=== PATIENT | female | born 1945 | race African-American/Black ===

== ENCOUNTER → 2017-01-29 | Outpatient (CLI) | payer OTHER, MEDICAID ==
[2015-11-19 13:35] VITALS: BP 135/65
--- NOTE | 2017-01-29 13:29 | KCIC ---
PROCEDURE Bilateral digital diagnostic mammogram. HISTORY Followup abnormal mammogram from October 2015. Recommend workup was not performed at that time. TECHNIQUE Bilateral digital mammogram. CAD was utilized. Routine CC and MLO views of both breasts were obtained as well as spot compression view of the right breast in CC projection. COMPARISON Bilateral mammogram November 04, 2015. FINDINGS Breast parenchyma demonstrates scattered fibroglandular densities (tissue density B). No dominant suspicious mass, suspicious microcalcifications, or architecture distortion is identified in either breast. The multiple, small mammographic asymmetries and masses identified on the previous study are without significant change on current examination. No enlarging mass or significant change is identified. Several benign appearing calcifications are present within both breasts. IMPRESSION No significant interval change in appearance of the breasts. No dominant suspicious abnormality is identified. Recommend return to annual screening mammography. BIRADS: 2 - Benign Finding(s) Follow Up: In 12 month(s) The images were reviewed with computer-aided detection. Patient information was entered into a reminder system with a target due date for the next mammogram. Statement of the [employer]: Mammography is the most sensitive method for findings small breast cancers, but it does not detect them all and is not a substitute for careful clinical examination. A negative mammogram does not negate a clinically suspicious finding and should not result in a delay in biopsying a clinically suspicious abnormality. Electronically signed by: Desmond Abraham MD (Jan 29, 2017 13:28:40)
== END | disposition home or self-care (01) ==
LOC: KCIC MAMMO 12:04
PROVIDERS: ATTEND Internal Medicine
DX: N63 Unspecified lump in breast (principal)
CPT/HCPCS: G0204; 77066

== ENCOUNTER → 2017-07-01 | Outpatient (CLI) | payer OTHER, MEDICAID ==
[2015-11-19 13:35] VITALS: BP 135/65
[~2017-07-01] MED LIST: IOHEXOL 240 MG/ML 50ML VIAL. PO ONE; IOHEXOL 300 MG/ML 75 ML VIAL IV ONE
--- NOTE | 2017-07-01 11:21 | RAD ---
Examination: CT of the abdomen pelvis with oral and IV contrast History: History of endometrial adenocarcinoma Comparison: None available Technique: Axial CT images of the abdomen pelvis were performed with oral and IV contrast with coronal and sagittal reformats are performed PQRS Compliance Statement: One or more of the following individualized dose reduction techniques were utilized for this examination: 1. Automated exposure control 2. Adjustment of the mA and/or kV according to patient size 3. Use of iterative reconstruction technique Findings: Minimal bibasal lung atelectasis. No evidence of free air identified in the abdomen. The visualized liver, spleen, adrenals grossly appears unremarkable. The gallbladder is mildly distended. The stomach is mildly distended. The visualized pancreas grossly appears unremarkable. The small bowel is nondilated. Feces and gas noted in the colon. The bilateral kidneys enhance symmetrically. Mild prominent appearing left renal external pelvis. No radiologically significant retroperitoneal lymphadenopathy identified. There is enlarged appearing uterus with heterogeneous enhancement with predominantly hypodense diffuse thickening of the endometrium.. Urinary bladder is mildly distended. No evidence of lytic bony destructive lesion. Moderate degenerative changes thoracal lumbar spine Minimal anterolisthesis of L4 on L5. Impression 1. Diffuse heterogeneous enhancement of the uterus with diffuse hypodensity of the thickened endometrium suggestive of known endometrial malignancy. True extent of uterus involvement can be better evaluated on MRI. 2. No evidence of enlarged retroperitoneal lymph nodes.
== END | disposition home or self-care (01) ==
LOC: MRI 07:10
DX: C54.1 Malignant neoplasm of endometrium (principal); R93.8 Abnormal findings on diagnostic imaging of other specified body structures
CPT/HCPCS: 74177; Q9966; Q9967

== ENCOUNTER → 2018-01-22 | Outpatient (CLI) | payer OTHER, MEDICAID | END | disposition home or self-care (01) | LOC: KCIC CT 10:21 | DX: C54.1 Malignant neoplasm of endometrium (principal); M47.894 Other spondylosis, thoracic region; R91.8 Other nonspecific abnormal finding of lung field; Z90.710 Acquired absence of both cervix and uterus | CPT/HCPCS: 71250; 74176 ==

== ENCOUNTER → 2018-07-30 | Outpatient (CLI) | payer OTHER, MEDICAID ==
[2015-11-19 13:35] VITALS: BP 135/65
[~2018-07-30] MED LIST changes: +HYDR-971 PO; -IOHEXOL 300 MG/ML 75 ML VIAL IV ONE
[2018-07-30 08:20] LABS: CREATININE 1.7 mg/dL (0.6-1.0); GFR 35.7
--- NOTE | 2018-07-30 11:06 | RAD ---
CT of the chest, abdomen, and pelvis compared to similar study dated January 22, 2018 for history of endometrial cancer. TECHNIQUE: Contiguous helical 5 mm axial images are obtained from the thoracic inlet to the pelvic floor following administration of oral contrast only. Sagittal and coronal reformations are evaluated. FINDINGS IN THE CHEST: Left lower thyroid gland is enlarged with coarse calcifications, but this is unchanged. Heart size within normal limits. Mild atherosclerotic changes are seen. There is calcified mediastinal adenopathy consistent with antecedent granulomatous disease. No suspicious mediastinal, hilar, or axillary lymph nodes are identified. There is a calcified granuloma in the left lung base. Another is seen in the left upper lobe. No suspicious lung nodules or masses are seen. FINDINGS IN THE ABDOMEN AND PELVIS: There is limited evaluation of the solid organ parenchyma due to lack of IV contrast. There is a small amount of perihepatic fluid. A small amount of free fluid is seen within the paracolic gutters and cul-de-sac as well. No morphologic abnormality of the liver identified. There is also increased edema throughout the mesentery diffusely, with the right hemiabdominal and pelvic predominance. Several new mesenteric masses are identified, including the 2 largest, including one measuring 1.9 x 2.1 cm in the right lower quadrant on axial image #41, and the second measuring 1.9 x 2.3 cm centrally in the pelvis on axial image 53. Several additional smaller nodules are seen, anteriorly on axial image #39, adjacent to the dominant mass in the right lower quadrant on axial image 40, anteriorly within the pelvis on axial image #55, centrally within the pelvis on axial images were, and within the right anterior pelvis on axial images 51. Several other smaller nodules may be obscured by associated mesenteric edema. No suspicious inguinal or retroperitoneal adenopathy is seen. The gallbladder Is contracted. The pancreas, spleen, and bilateral adrenal glands are grossly unremarkable. Kidneys are atrophic, but free of hydronephrosis or calcifications. There is inhomogeneous opacification of large and small bowel, with no areas of focal bowel dilatation or evidence of bowel obstruction.. Inflammatory changes around the ileocecal region are prominent, and there is some thickening of the mucosa of the distal ileum informally in this vicinity, which may represent primary or secondary enteritis. The urinary bladder is fluid distended and grossly unremarkable. Pelvic organs are absent. No suspicious osteoblastic or osteolytic bone lesions are evident. IMPRESSION: 1. Interval development of multiple mesenteric masses, the largest of which measures 1.9 x 2.3 cm and is seen centrally within the pelvis on axial image #53. This is associated with extensive inflammatory change throughout the mesentery with a right hemiabdominal and pelvic predominance, as well as development of a small amount of perihepatic and pelvic free fluid. Findings are suspicious for metastatic disease 2. Circumferential mucosal thickening of the distal ileum, corresponding to the areas of mesenteric inflammation. This finding is likely secondary enteritis from the aforementioned mesenteric process, though a primary enteritis from an etiology cannot be excluded. 3. Other chronic changes as described. Electronically signed by: Jae De Jesus MD (07/30/2018 11:02 AM) [facility]
== END | disposition home or self-care (01) ==
LOC: CT 07:53
PROVIDERS: ATTEND Obstetrics & Gynecology Gynecologic Oncology
DX: C54.1 Malignant neoplasm of endometrium (principal)
CPT/HCPCS: 36415; 71250; 74176; 82565; Q9966

== ENCOUNTER 2018-08-07 13:18 | Emergency (ER) | payer OTHER, MEDICAID ==
[~2018-08-07] VITALS: Ht 154.9 cm; Wt 64.0 kg
[2018-08-07] MEDS ORDERED: MORPHINE SULFATE 4 MG/ML VIAL. IV ONE (15:00)
[2018-08-07 15:08] LABS: BILIRUBIN,URINE SMALL (NEG); CLARITY,URINE CLEAR; COLOR,URINE AMBER; NITRITE,URINE NEGATIVE (NEG); PH,URINE 5.5; PROTEIN,URINE 30 mg/dL (NEG-TRACE)
[2018-08-07 15:11] LABS: BASO % 0 % (0-3); EOS % 0 % (0-3); HEMATOCRIT 30.6 % (36.0-47.0); HEMOGLOBIN 10.5 g/dL (12.0-15.5); LYMPH # 0.5 x10^3/uL (1.0-4.8); LYMPH % 6 % (24-48); MEAN CORPUSCULAR HEMOGLOBIN 30 pg (25-35); MEAN CORPUSCULAR HGB CONC 34 g/dL (31-37); MEAN CORPUSCULAR VOLUME 87 fL (79-100); MONO # 0.7 x10^3/uL (0.0-1.1); MONO % 9 % (0-9); NEUT # 6.7 x10^3uL (1.8-7.7); NEUT % 84 % (31-73); PLATELET COUNT 247 x10^3/uL (140-400); RED BLOOD COUNT 3.53 x10^6/uL (3.50-5.40); RED CELL DISTRIBUTION WIDTH 15.1 % (11.5-14.5)
[2018-08-07 15:19] LABS: BACTERIA,URINE FEW /HPF (0-FEW); RBC,URINE 0 /HPF (0-2); SQUAMOUS EPITHELIAL CELL,UR MOD /LPF
[2018-08-07 15:20] LABS: HYALINE CASTS, URINE OCCASIONAL /HPF
[2018-08-07 15:25] LABS: CALCIUM 9.4 mg/dL (8.5-10.1); CREATININE 1.4 mg/dL (0.6-1.0); GFR 44.7; POTASSIUM 3.7 mmol/L (3.5-5.1)
[2018-08-07 15:30] VITALS: BP 132/62
[2018-08-07 15:31] LABS: ALBUMIN 3.3 g/dL (3.4-5.0); ALBUMIN/GLOBULIN RATIO 0.8 (1.0-1.7); TOTAL BILIRUBIN 0.4 mg/dL (0.2-1.0); TOTAL PROTEIN 7.4 g/dL (6.4-8.2)
[2018-08-07] MEDS ORDERED: HYDR-971 PO (15:47)
--- NOTE | 2018-08-07 15:47 | PHYS DOC ---
Past Medical History Past Medical History: Diabetes-Type II, High Cholesterol, Hypertension, Hypothyroid, Other Additional Past Medical Histor: Gout Past Surgical History: No Surgical History Alcohol Use: None Drug Use: None Adult General Chief Complaint Chief Complaint: ABDOMINAL PAIN HPI HPI Patient is a 73 year old f who presents to the ED for evaluation of lower abdominal pain. Present for the past 4-6 weeks, progressive. States constant throughout the day but increases with BMs. History of Endometrial cancer s/p KELSEY BSO, Chemotherapy, and Radiation. Reports that she completed this 02/2018 and was told that she was in remission. Follows with Gynecology/oncologist at [facility]. Dr. Sauceda ordered a CT Chest/ABD/Pelvis given above complaints which was completed on 07/30. Pt states that she has not been told the results of CT yet. Taking Tylenol intermittently for pain. No fever, no GI bleed symptoms, no weight loss. Decreased PO intake. pt reports decreased appetite. No nausea. Having some intermittent diarrhea. Patient has declined colonoscopies repetitively and has never had one. Review of Systems Review of Systems Constitutional: Denies fever or chills [] Eyes: Denies change in visual acuity, redness, or eye pain [] HENT: Denies nasal congestion or sore throat [] Respiratory: Denies cough or shortness of breath [] Cardiovascular: No chest pain, no orthopnea, no lower extremity edema GI: Abdominal pain present, no nausea, no vomiting, Some intermittent diarrhea present. : Denies dysuria or hematuria [] Musculoskeletal: Denies back pain or joint pain [] Integument: Denies rash or skin lesions [] Neurologic: Denies headache, focal weakness or sensory changes [] Endocrine: Denies polyuria or polydipsia [] All other systems were reviewed and found to be within normal limits, except as documented in this note. Current Medications Current Medications Current Medications Medications (Trade) Dose Ordered Sig/Gricelda Start Time Stop Time Status Last Admin Dose Admin Morphine Sulfate (Morphine Sulfate) 4 mg 1X ONCE 08/07/18 15:00 08/07/18 15:01 DC 08/07/18 15:17 4 MG Allergies Allergies Allergies Coded Allergies Type Severity Reaction Last Updated Verified Sulfa (Sulfonamide Antibiotics) Allergy Unknown 11/19/15 Yes Physical Exam Physical Exam Constitutional: Well developed, well nourished, no acute distress, non-toxic appearance. [] HENT: Normocephalic, atraumatic, Eyes: PERRLA, EOMI, conjunctiva normal, no discharge. [] Neck: Normal range of motion, no tenderness, supple, no stridor. [] Cardiovascular:Heart rate regular rhythm, no murmur [] Lungs & Thorax: Bilateral breath sounds clear to auscultation [] Abdomen: Bowel sounds normal, soft, mild tenderness to LLQ and RLQ region. Skin: Warm, dry, no erythema, no rash. [] Back: No tenderness, no CVA tenderness. [] Extremities: No tenderness, no cyanosis, no clubbing, ROM intact, no edema. [] Neurologic: Alert and oriented X 3, no focal deficits noted. [] Psychologic: Affect normal, judgement normal, mood normal. [] Current Patient Data Vital Signs Vital Signs Date Time Temp Pulse Resp B/P (MAP) Pulse Ox O2 Delivery O2 Flow Rate FiO2 08/07/18 15:17 18 100 Room Air 08/07/18 14:25 97.5 83 166/83 (110) 97.5 Lab Values Laboratory Tests Test 08/07/18 14:38 08/07/18 15:00 Urine Collection Type Unknown Urine Color Zohreh Urine Clarity Clear Urine pH 5.5 Urine Specific [place] 1.025 Urine Protein 30 mg/dL (NEG-TRACE) Urine Glucose (UA) Negative mg/dL (NEG) Urine Ketones (Stick) Trace mg/dL (NEG) Urine Blood Negative (NEG) Urine Nitrite Negative (NEG) Urine Bilirubin Small (NEG) Urine Urobilinogen Dipstick 1.0 mg/dL (0.2 mg/dL) Urine Leukocyte Esterase Moderate (NEG) Urine RBC 0 /HPF (0-2) Urine WBC 11-20 /HPF (0-4) Urine Squamous Epithelial Cells Mod /LPF Urine Bacteria Few /HPF (0-FEW) Urine Hyaline Casts Occasional /HPF Urine Mucus Mod /LPF White Blood Count 8.0 x10^3/uL (4.0-11.0) Red Blood Count 3.53 x10^6/uL (3.50-5.40) Hemoglobin 10.5 g/dL (12.0-15.5) L Hematocrit 30.6 % (36.0-47.0) L Mean Corpuscular Volume 87 fL (79-100) Mean Corpuscular Hemoglobin 30 pg (25-35) Mean Corpuscular Hemoglobin Concent 34 g/dL (31-37) Red Cell Distribution Width 15.1 % (11.5-14.5) H Platelet Count 247 x10^3/uL (140-400) Neutrophils (%) (Auto) 84 % (31-73) H Lymphocytes (%) (Auto) 6 % (24-48) L Monocytes (%) (Auto) 9 % (0-9) Eosinophils (%) (Auto) 0 % (0-3) Basophils (%) (Auto) 0 % (0-3) Neutrophils # (Auto) 6.7 x10^3uL (1.8-7.7) Lymphocytes # (Auto) 0.5 x10^3/uL (1.0-4.8) L Monocytes # (Auto) 0.7 x10^3/uL (0.0-1.1) Eosinophils # (Auto) 0.0 x10^3/uL (0.0-0.7) Basophils # (Auto) 0.0 x10^3/uL (0.0-0.2) Sodium Level 143 mmol/L (136-145) Potassium Level 3.7 mmol/L (3.5-5.1) Chloride Level 104 mmol/L (98-107) Carbon Dioxide Level 26 mmol/L (21-32) Anion Gap 13 (6-14) Blood Urea Nitrogen 25 mg/dL (7-20) H Creatinine 1.4 mg/dL (0.6-1.0) H Estimated GFR (Cockcroft-Gault) 44.7 BUN/Creatinine Ratio 18 (6-20) Glucose Level 94 mg/dL (70-99) Calcium Level 9.4 mg/dL (8.5-10.1) Total Bilirubin 0.4 mg/dL (0.2-1.0) Aspartate Amino Transferase (AST) 18 U/L (15-37) Alanine Aminotransferase (ALT) 16 U/L (14-59) Alkaline Phosphatase 113 U/L (46-116) Total Protein 7.4 g/dL (6.4-8.2) Albumin 3.3 g/dL (3.4-5.0) L Albumin/Globulin Ratio 0.8 (1.0-1.7) L Lipase 67 U/L (73-393) L Laboratory Tests 08/07/18 15:00 Laboratory Tests 08/07/18 15:00 EKG EKG [] Radiology/Procedures Radiology/Procedures CT Chest /ABD/Pelvis IMPRESSION: 1. Interval development of multiple mesenteric masses, the largest of which measures 1.9 x 2.3 cm and is seen centrally within the pelvis on axial image #53. This is associated with extensive inflammatory change throughout the mesentery with a right hemiabdominal and pelvic predominance, as well as development of a small amount of perihepatic and pelvic free fluid. Findings are suspicious for metastatic disease 2. Circumferential mucosal thickening of the distal ileum, corresponding to the areas of mesenteric inflammation. This finding is likely secondary enteritis from the aforementioned mesenteric process, though a primary enteritis from an etiology cannot be excluded. 3. Other chronic changes as described. Electronically signed by: Jae De Jesus MD (07/30/2018 11:02 AM) [facility][] Course & Med Decision Making Course & Med Decision Making Pertinent Labs and Imaging studies reviewed. (See chart for details) []Patient with no acute changes to her abdominal pain since early June. Patient had an outpatient CT done as noted above. Patient was not aware of these results. CT shows some new signs of metastatic cancer to her mesentery with some inflammation of the ileum. I called and discussed with Dr. Altamirano who was not aware of these results as they had not been faxed to her yet. I faxed the CT results to her. Dr. Sauceda will provide very close follow-up. Patient has reassuring labs in the setting of no acute life-threatening abnormalities. She does seem to have some chronic anemia. Also some mild CKD. Her urine sample was contaminated. She is not having any dysuria. I will not treat this at this time. Patient will follow very close with Dr. Sauceda. We will provide pain medication. Discussed imaging and lab results with patient at length. Discussed plan for very close follow-up. Discussed Rx. ER return precautions given. Patient verbalized understanding. All questions answered. Dragon Disclaimer Dragon Disclaimer This electronic medical record was generated, in whole or in part, using a voice recognition dictation system. Departure Departure Impression: Primary Impression: Lower abdominal pain Additional Impression: Mesenteric mass Disposition: HOME, SELF-CARE Condition: IMPROVED Referrals: ALAN IQBAL MD (PCP) Patient Instructions: Abdominal Pain (Nonspecific) Additional Instructions: Thank you for coming to [facility]. Please repeat the attached handouts. Please follow-up with your primary care physician. Return to the ER if your symptoms worsen or you have any other concerns. The oncology office will be calling you tomorrow for very close follow-up appointment. Please take pain medication as prescribed for pain. This medication will cause constipation and you may need to take something over-the- counter for constipation. Scripts Hydrocodone/Apap 5-325 (NORCO 5-325 TABLET) 1 Each Tablet 1-2 EACH PO PRN Q6HRS PRN for PAIN, #15 as needed for pain Prov: GREG KAMARA DO 08/07/18 Problem Qualifiers GREG KAMARA DO Aug 07, 2018 15:47
== END 2018-08-07 15:55 | disposition home or self-care (01) ==
LOC: ER 13:18
DX: R19.04 Left lower quadrant abdominal swelling, mass and lump (principal); R19.03 Right lower quadrant abdominal swelling, mass and lump; E11.9 Type 2 diabetes mellitus without complications; E78.00 Pure hypercholesterolemia, unspecified; I10 Essential (primary) hypertension; E03.9 Hypothyroidism, unspecified; Z88.2 Allergy status to sulfonamides
CPT/HCPCS: 36415; 80053; 81001; 83690; 85025; 87086; 96374; 99284; J2270

== ENCOUNTER 2019-02-02 10:59 | Inpatient (IN) | payer BC, MEDICAID ==
[~2019-02-02] VITALS: Ht 154.9 cm; Wt 55.1 kg
[~2019-02-02 10:59] MED LIST changes: +HYDR-3164 PO; -HYDR-971 PO; -IOHEXOL 240 MG/ML 50ML VIAL. PO ONE
--- NOTE | 2019-02-02 11:26 | EKG ---
[facility] [address] [place] [address] Test Date: 2019-02-02 Test Time: 11:17:06 Pat Name: BHAVIN GALVIN Department: Room: Gender: F [employer]: : 1945 Requested By: JUDSON JIANG Order Number: [id number] Reading MD: Kelton Rose Measurements Intervals [place] Rate: 81 P: 48 MO: 150 QRS: -11 QRSD: 74 T: 13 QT: 370 QTc: 430 Interpretive Statements SINUS RHYTHM LEFTWARD AXIS OTHERWISE NORMAL ECG RI6.01 Unconfirmed report No previous ECG available for comparison Electronically Signed On 02-06-2019 9:19:13 CDT by Kelton Rose
[2019-02-02 11:30] LABS: BILIRUBIN,URINE SMALL (NEG); CLARITY,URINE CLEAR; COLOR,URINE YELLOW; NITRITE,URINE NEGATIVE (NEG); PH,URINE 5.5; PROTEIN,URINE NEGATIVE (NEG-TRACE)
[2019-02-02] MEDS ORDERED: IV NORMAL SALINE 500ML BAG 500 ML IV ONE (11:30)
[2019-02-02] MEDS ORDERED: fentaNYL PF VIAL 100 MCG/2 ML VIAL IV ONE (11:30)
[2019-02-02 11:36] LABS: SQUAMOUS EPITHELIAL CELL,UR OCC /LPF; WBC,URINE OCC /HPF (0-4)
[2019-02-02 11:37] LABS: BACTERIA,URINE FEW /HPF (0-FEW); RBC,URINE 0 /HPF (0-2)
[2019-02-02 12:23] LABS: BASO % 1 % (0-3); EOS % 0 % (0-3); HEMATOCRIT 35.5 % (36.0-47.0); HEMOGLOBIN 11.7 g/dL (12.0-15.5); LYMPH # 0.3 x10^3/uL (1.0-4.8); LYMPH % 5 % (24-48); MEAN CORPUSCULAR HEMOGLOBIN 30 pg (25-35); MEAN CORPUSCULAR HGB CONC 33 g/dL (31-37); MEAN CORPUSCULAR VOLUME 90 fL (79-100); MONO # 0.8 x10^3/uL (0.0-1.1); MONO % 12 % (0-9); NEUT # 5.9 x10^3uL (1.8-7.7); NEUT % 83 % (31-73); PLATELET COUNT 82 x10^3/uL (140-400); RED BLOOD COUNT 3.95 x10^6/uL (3.50-5.40); RED CELL DISTRIBUTION WIDTH 20.1 % (11.5-14.5); WHITE BLOOD COUNT 7.1 x10^3/uL (4.0-11.0)
[2019-02-02 12:31] LABS: PROTHROMBIN TIME PATIENT 17.2 SEC (11.7-14.0)
[2019-02-02 12:43] LABS: CALCIUM 8.7 mg/dL (8.5-10.1); CREATININE 1.2 mg/dL (0.6-1.0); GFR 53.4; POTASSIUM 3.7 mmol/L (3.5-5.1)
[2019-02-02 12:48] LABS: ALBUMIN 3.1 g/dL (3.4-5.0); TOTAL BILIRUBIN 0.3 mg/dL (0.2-1.0); TOTAL PROTEIN 6.2 g/dL (6.4-8.2)
[2019-02-02 12:50] LABS: % BANDS 13 % (0-9); % LYMPHS 5 % (24-48); % MONOS 11 % (0-10); % SEGS 71 % (35-66); ANISOCYTOSIS SLIGHT; PLT ESTIMATE DECREASED (ADEQUATE)
[2019-02-02] MEDS ORDERED: CONTRAST GIVEN. MC PRN (13:15)
[2019-02-02] MEDS ORDERED: IOHEXOL 300 MG/ML 100ML VIAL. IV ONE (13:15)
--- NOTE | 2019-02-02 13:46 | RAD ---
PORTABLE CHEST 1V Clinical indications: EVALUATE FOR POWER PORT. COMPARISON: No previous chest x-ray available. Findings: A right IJ Port-A-Cath is in place and the tip is seen within the upper superior vena cava. Small granuloma of the left upper lobe is seen. No acute lung infiltrate or pleural effusion or pulmonary edema or lung mass or pneumothorax is seen. The heart size, pulmonary vasculature, mediastinum and both odette are unremarkable. There s loss of the acromial humeral space of the right shoulder consistent with a chronic rotator cuff tear of the right shoulder. Impression: No acute lung infiltrate. Electronically signed by: Mahamed Magaña MD (02/02/2019 1:43 PM) [id number]
--- NOTE | 2019-02-02 14:34 | RAD ---
Examination: CT of the abdomen pelvis with IV contrast HISTORY: History of right lower quadrant abdominal pain COMPARISON: 07/30/2018 TECHNIQUE: Axial CT images of the abdomen pelvis with IV contrast. Coronal and sagittal reformats are performed. Exposure: One or more of the following individualized dose reduction techniques were utilized for this examination: 1. Automated exposure control 2. Adjustment of the mA and/or kV according to patient size 3. Use of iterative reconstruction technique FINDINGS: Minimal bibasilar lung atelectasis. No evidence of free air identified in the abdomen. The visualized liver, spleen, adrenals grossly appears unremarkable. The gallbladder is mildly distended Stomach is mildly distended. The visualized pancreas grossly appears unremarkable Small bowel is nondilated. Feces and gas noted in the colon. The previously visualized mesenteric soft tissue densities appears slightly decreased in size for example the right lower quadrant mesenteric soft tissue density now measures 1.1 cm (prior 2.0 cm). There is mild fat stranding identified in the mesentery particularly in the lower abdomen. The appendix is not well-visualized. However there is some fat stranding identified in the right lower quadrant of the abdomen.. Urinary bladder is mildly distended There is focal fluid identified measuring 5.6 x 2.1 cm between the urinary bladder and the rectum. The bilateral kidneys enhance symmetrically. Mild prominent left extrarenal pelvis. Moderate degenerative changes lumbar spine. There is diffuse disc bulge identified at L1-L2 vertebral level. Mild anterolisthesis of L4 on L5. IMPRESSION: 1. 5.6 cm fluid density identified in the pelvis , between the urinary bladder and the rectum , suspicious for pelvic abscess or recurrence of endometrial carcinoma. 2. Mesenteric soft tissue densities are identified slightly less prominent compared to prior exam likely metastasis. 3. Mild diffuse fat stranding identified in the mesentery particularly in the lower abdomen could be inflammatory fat stranding. There is some inflammatory fat stranding identified in the right lower quadrant abdomen, however appendix is not clearly evident on this examination. Enteritis or peritonitis is not excluded. Electronically signed by: Moody Nicole MD (02/02/2019 2:32 PM) [id number]
[2019-02-02] MEDS ORDERED: fentaNYL PF VIAL 100 MCG/2 ML VIAL IV PRN (15:15)
[2019-02-02] MEDS ORDERED: PIP/TAZO PER PHARMACY MC PRN (15:15)
--- NOTE | 2019-02-02 15:25 | PHYS DOC ---
Past Medical History Past Medical History: Cancer, Diabetes-Type II, High Cholesterol, Hypertension, Hypothyroid, Other Additional Past Medical Histor: Gout,ENDOMETRIAL CA Past Surgical History: Hysterectomy, Other Additional Past Surgical Histo: PAC Alcohol Use: None Drug Use: None Adult General Chief Complaint Chief Complaint: ABDOMINAL PAIN HPI HPI Patient is a 73 year old F right lower quadrant abdominal pain 1 week sharp coming and going. no fever, no abdo pain vomitnig,. She is on xarelto for prior history of DVT. She is on chemotherapy for endometrial cancer which did recur she is followed at [facility]. hurts to walk and move. Review of Systems Review of Systems Constitutional: Denies fever or chills [] Eyes: Denies change in visual acuity, redness, or eye pain [] Cardiovascular: No additional information not addressed in HPI [] GI: Neurologic: Denies headache, focal weakness or sensory changes [] Endocrine: Denies polyuria or polydipsia [] All other systems were reviewed and found to be within normal limits, except as documented in this note. Current Medications Current Medications Current Medications Medications (Trade) Dose Ordered Sig/Gricelda Start Time Stop Time Status Last Admin Dose Admin Fentanyl Citrate (Fentanyl 2ml Vial) 50 mcg PRN Q1HR PRN 02/02/19 15:15 02/03/19 15:14 UNV Info (CONTRAST GIVEN -- Rx MONITORING) 1 each PRN DAILY PRN 02/02/19 13:15 02/04/19 13:14 Iohexol (Omnipaque 300 Mg/ml) 60 ml 1X ONCE 02/02/19 13:15 02/02/19 13:16 DC Piperacillin Sod/ Tazobactam Sod (Zosyn Per Pharmacy) 1 each PRN DAILY PRN 02/02/19 15:15 UNV Sodium Chloride 1,000 ml @ 75 mls/hr [id number] 02/02/19 15:11 02/03/19 15:10 UNV Allergies Allergies Allergies Coded Allergies Type Severity Reaction Last Updated Verified Sulfa (Sulfonamide Antibiotics) Allergy Unknown 11/19/15 Yes Physical Exam Physical Exam Constitutional: Well developed, well nourished, no acute distress, non-toxic appearance. [] HENT: Normocephalic, atraumatic, bilateral external ears normal, oropharynx moist, no oral exudates, nose normal. [] Eyes: PERRLA, EOMI, conjunctiva normal, no discharge. [] Neck: Normal range of motion, no tenderness, supple, no stridor. [] Cardiovascular:Heart rate regular rhythm, no murmur [] Lungs & Thorax: Bilateral breath sounds clear to auscultation [] Abdomen: Bowel sounds normal, soft, rlq no rebound or guarding tenderness, no masses, no pulsatile masses. [] Skin: Warm, dry, no erythema, no rash. [] Back: No tenderness, no CVA tenderness. [] Extremities: No tenderness, no cyanosis, no clubbing, ROM intact, no edema. [] Neurologic: Alert and oriented X 3, normal motor function, normal sensory function, no focal deficits noted. [] Psychologic: Affect normal, judgement normal, mood normal. [] Current Patient Data Vital Signs Vital Signs Date Time Temp Pulse Resp B/P (MAP) Pulse Ox O2 Delivery O2 Flow Rate FiO2 02/02/19 12:25 20 96 Room Air 02/02/19 11:05 98.0 98 152/71 (98) 98.0 Lab Values Laboratory Tests Test 02/02/19 11:15 02/02/19 12:10 Urine Collection Type Unknown Urine Color Yellow Urine Clarity Clear Urine pH 5.5 Urine Specific [place] 1.025 Urine Protein Negative mg/dL (NEG-TRACE) Urine Glucose (UA) Negative mg/dL (NEG) Urine Ketones (Stick) Trace mg/dL (NEG) Urine Blood Negative (NEG) Urine Nitrite Negative (NEG) Urine Bilirubin Small (NEG) Urine Urobilinogen Dipstick 1.0 mg/dL (0.2 mg/dL) Urine Leukocyte Esterase Negative (NEG) Urine RBC 0 /HPF (0-2) Urine WBC Occ /HPF (0-4) Urine Squamous Epithelial Cells Occ /LPF Urine Bacteria Few /HPF (0-FEW) Urine Mucus Slight /LPF White Blood Count 7.1 x10^3/uL (4.0-11.0) Red Blood Count 3.95 x10^6/uL (3.50-5.40) Hemoglobin 11.7 g/dL (12.0-15.5) L Hematocrit 35.5 % (36.0-47.0) L Mean Corpuscular Volume 90 fL (79-100) Mean Corpuscular Hemoglobin 30 pg (25-35) Mean Corpuscular Hemoglobin Concent 33 g/dL (31-37) Red Cell Distribution Width 20.1 % (11.5-14.5) H Platelet Count 82 x10^3/uL (140-400) L Neutrophils (%) (Auto) 83 % (31-73) H Lymphocytes (%) (Auto) 5 % (24-48) L Monocytes (%) (Auto) 12 % (0-9) H Eosinophils (%) (Auto) 0 % (0-3) Basophils (%) (Auto) 1 % (0-3) Neutrophils # (Auto) 5.9 x10^3uL (1.8-7.7) Lymphocytes # (Auto) 0.3 x10^3/uL (1.0-4.8) L Monocytes # (Auto) 0.8 x10^3/uL (0.0-1.1) Eosinophils # (Auto) 0.0 x10^3/uL (0.0-0.7) Basophils # (Auto) 0.0 x10^3/uL (0.0-0.2) Segmented Neutrophils % 71 % (35-66) H Band Neutrophils % 13 % (0-9) H Lymphocytes % 5 % (24-48) L Monocytes % 11 % (0-10) H Platelet Estimate Decreased (ADEQUATE) Anisocytosis Slight Prothrombin Time 17.2 SEC (11.7-14.0) H Prothrombin Time INR 1.4 (0.8-1.1) H Sodium Level 142 mmol/L (136-145) Potassium Level 3.7 mmol/L (3.5-5.1) Chloride Level 104 mmol/L (98-107) Carbon Dioxide Level 30 mmol/L (21-32) Anion Gap 8 (6-14) Blood Urea Nitrogen 22 mg/dL (7-20) H Creatinine 1.2 mg/dL (0.6-1.0) H Estimated GFR (Cockcroft-Gault) 53.4 BUN/Creatinine Ratio 18 (6-20) Glucose Level 90 mg/dL (70-99) Calcium Level 8.7 mg/dL (8.5-10.1) Total Bilirubin 0.3 mg/dL (0.2-1.0) Aspartate Amino Transferase (AST) 17 U/L (15-37) Alanine Aminotransferase (ALT) 11 U/L (14-59) L Alkaline Phosphatase 101 U/L (46-116) Total Protein 6.2 g/dL (6.4-8.2) L Albumin 3.1 g/dL (3.4-5.0) L Albumin/Globulin Ratio 1.0 (1.0-1.7) Laboratory Tests 02/02/19 12:10 Laboratory Tests 02/02/19 12:10 EKG EKG []Normal sinus rhythm rate of 81 no acute ischemic changes noted interpreted by me time of encounter Radiology/Procedures Radiology/Procedures [] Impressions: IMPRESSION: 1. 5.6 cm fluid density identified in the pelvis , between the urinary bladder and the rectum , suspicious for pelvic abscess or recurrence of endometrial carcinoma. 2. Mesenteric soft tissue densities are identified slightly less prominent compared to prior exam likely metastasis. 3. Mild diffuse fat stranding identified in the mesentery particularly in the lower abdomen could be inflammatory fat stranding. There is some inflammatory fat stranding identified in the right lower quadrant abdomen, however appendix is not clearly evident on this examination. Enteritis or peritonitis is not excluded. Electronically signed by: Moody Nicole MD (02/02/2019 2:32 PM) [facility] DICTATED and SIGNED BY: MOODY NICOLE MD DATE: 02/02/19 1432 Course & Med Decision Making Course & Med Decision Making Pertinent Labs and Imaging studies reviewed. (See chart for details) []73-year-old female with a history of endometrial cancer on chemotherapy DVT on Xarelto presenting with right lower quadrant abdominal pain for one-week noted the CT scan above the appendix is not identified, however there is stranding in the right lower quadrant and she does have some tenderness she is currently on Xarelto so she would not be getting emergency surgery at this point in time anyway nevertheless I think she warrants overnight admission for IV Zosyn and routine surgical consultation pending clinical evaluation improvement. I spoke with Dr. hernández at 3:15 PM who is in agreement with the plan. Did talk to the pa itzel and her family about the diagnosis. She did report to me a recurrence of endometrial cancer her pelvis so this is likely the pelvic fluid finding on CT but I have sent for records from [facility] to compare size those records are currently pending. Dragon Disclaimer Dragon Disclaimer This electronic medical record was generated, in whole or in part, using a voice recognition dictation system. Departure Departure Impression: Primary Impression: Abdominal pain Disposition: ADMITTED INPATIENT Admitting Physician: Annita Hernández Condition: STABLE Referrals: ANNITA HERNÁNDEZ MD (PCP) JUDSON JIANG MD Feb 02, 2019 15:25
[2019-02-02] MEDS: PIPERACILLIN/TAZOBACTAM 3.375 GM in IV NORMAL SALINE 50ML 50 ML IV SCH (16:56)
[2019-02-02] MEDS: IV NORMAL SALINE 1000ML BAG 1,000 ML IV SCH (16:56)
[2019-02-02] MEDS ORDERED: TRIA1CAP3 PO (18:21)
[2019-02-02] MEDS ORDERED: ASPI81TA50 PO (18:21)
[2019-02-02] MEDS ORDERED: SIMV20TA3 PO (18:21)
[2019-02-02] MEDS ORDERED: GLIP5TAB22 PO (18:21)
[2019-02-02] MEDS ORDERED: COLC0.6T34 PO (18:21)
[2019-02-02] MEDS ORDERED: METH-364 PO (18:21)
[2019-02-02 18:24] VITALS: BP 150/51
[2019-02-02 23:00] VITALS: BP 124/69
[2019-02-03 02:45] VITALS: BP 120/72
[2019-02-03] MEDS: IV NORMAL SALINE 1000ML BAG 1,000 ML IV SCH (05:16)
[2019-02-03] MEDS: PIPERACILLIN/TAZOBACTAM 3.375 GM in IV NORMAL SALINE 50ML 50 ML IV SCH ×3 (05:55)
[2019-02-03 07:00] VITALS: BP 139/73
--- NOTE | 2019-02-03 10:29 | PDOC ---
Provider Note Provider Note Pt seen.H&P dictated.#[id number]. ALAN IQBAL MD Feb 03, 2019 10:29
[2019-02-03] MEDS ORDERED: DEXTROSE 50% 25 GM / 50ML DISP.SYRIN. IV PRN (10:30)
[2019-02-03] MEDS ORDERED: POTASSIUM CL 20MEQ D5-0.9%NACL 1,000 ML IV SCH (10:30)
[2019-02-03 11:00] VITALS: BP 138/67
--- NOTE | 2019-02-03 11:35 | HP ---
ADMIT DATE: 02/02/2019 MEDICAL HISTORY AND PHYSICAL PATIENT LOCATION: [facility]. REASON FOR ADMISSION TO THE HOSPITAL: Pelvic pain. The patient has a history of endometrial cancer, was getting chemotherapy at [facility]. HISTORY OF PRESENT ILLNESS: The patient is a 73-year-old female who is complaining of lower pelvic pain for the last 3 days prior to admission and came to the Emergency Room. White count was normal. CT scan of the abdomen shows 5 cm of fluid in the pelvis and distending of the colon, not sure could be an abscess versus appendicitis versus carcinomatosis. The patient was admitted to the hospital for surgical consultation. PAST MEDICAL HISTORY: She has a history of diabetes, hypertension, hyperlipidemia and hyperthyroidism. She also has history of endometrial cancer. She is getting treatment, had seen TRANSPORT MANAGER at [facility], had surgery and she was getting chemotherapy. PAST SURGICAL HISTORY: She has a hysterectomy for endometrial cancer. She also had a Port-A-Cath placed for chemo. ALLERGIES: ALLERGY TO SULFA. MEDICATIONS: Aspirin 81 mg daily, colchicine p.r.n., glipizide 5 mg daily, methimazole 10 mg daily, simvastatin 20 mg daily and Dyazide 1 daily. PERSONAL HISTORY: Denies smoking, alcohol or drug abuse. FAMILY HISTORY: Positive for diabetes and hypertension. REVIEW OF SYMPTOMS: CARDIAC GONZALES: No chest pain. GASTROINTESTINAL: Complains of pelvic pain. No nausea, vomiting or diarrhea. GENERAL: No fever. Rest of the 14-system was reviewed and negative. PHYSICAL EXAMINATION: HEENT: On examination, head is atraumatic. Pupils equal. Oral cavity, no congestion. NECK: Supple. Thyroid not enlarged. JVD not elevated. CHEST: Symmetrical. Port-A-Cath, right side of the chest. CARDIOVASCULAR: S1, S2. LUNGS: Clear. ABDOMEN: Soft. The patient has tenderness in the right lower quadrant to deep palpation. No rebound. Bowel sounds present. No mass palpable. GENITOURINARY: No Del Cid. RECTAL: Deferred. EXTREMITIES: No calf tenderness, no edema. Pulses are 1+. NEUROLOGICAL EXAMINATION: Cranial nerves intact. Power 5/5, moves all extremities. VITAL SIGNS: Shows temperature 98, pulse 71, respirations 18, blood pressure 124/58 and 100% on room air. LABORATORY DATA: Shows a white count of 7, hemoglobin 12 and platelets 82,000. INR is 1.4. Electrolytes show sodium 142, creatinine 3.7, chloride 104, bicarb 30, anion gap 8, BUN 32, creatinine 1.1 and glucose 90. LFTs were normal. Urine was negative. Chest x-ray was negative. CT scan of the abdomen and pelvis showed a 5.6 cm fluid density identified in the pelvis, between the bladder and the rectum. Differential diagnoses could be: 1. A pelvic abscess versus endometrial carcinomatosis. 2. Metastatic soft tissue densities. FINAL IMPRESSION: 1. Lower pelvic pain, possibility of pelvic abscess versus endometrial carcinomatosis. 2. History of stage IV endometrial carcinoma with carcinomatosis, was getting chemotherapy at [facility]; most of her treatments were there. 3. Diabetes, hypertension, hyperlipidemia and hyperthyroidism. PLAN: Plan at this time was to admit to hospital. Surgery is consulted. White count is not elevated. Follow up on the antibiotics and we will see if she had a recent CT scan at [facility]; we can compare it. ALAN IQBAL MD DR: DAFNE/lorraine JOB#: [id number] / [id number]
--- NOTE | 2019-02-03 11:56 | PDOC2 ---
CONSULT Date of Consult Date of Consult DATE: 02/03/19 TIME: 11:51 Reason for Consult Reason for Consult: possible appendicitis Referring Physician Referring Physician: ER Identification/Chief Complaint Chief Complaint abdominal pain Source Source: Chart review, Patient History of Present Illness Reason for Visit: 1 week history of RLQ pain, no n/v. No constipation or diarrhea. Hurts to walk. She is a patient of Dr Zee. Underwent hysterectomy 1 year ago for endometrial cancer. Now with recurrence and is currently undergoing chemo. She is on xalreto for dvt. Past Medical History Cardiovascular: HTN GI: GERD Heme/Onc: Cancer (endometrial ) Endocrine: Hyperthyroidism Past Surgical History Past Surgical History: Hysterectomy Family History Family History: Family History Unknown Social History No ALCOHOL: none Drugs: None Lives: with Family Current Problem List Problem List Problems Medical Problems: (1) Abdominal pain Status: Acute Current Medications Current Medications Current Medications Fentanyl Citrate (Fentanyl 2ml Vial) 50 mcg 1X ONCE IV Last administered on 02/02/19at 12:25; Start 02/02/19 at 11:30; Stop 02/02/19 at 11:31; Status DC Sodium Chloride 500 ml @ 500 mls/hr 1X ONCE IV Last administered on 02/02/19at 12:24; Start 02/02/19 at 11:30; Stop 02/02/19 at 12:29; Status DC Iohexol (Omnipaque 300 Mg/ml) 60 ml 1X ONCE IV ; Start 02/02/19 at 13:15; Stop 02/02/19 at 13:16; Status DC Info (CONTRAST GIVEN -- Rx MONITORING) 1 each PRN DAILY PRN MC SEE COMMENTS; Start 02/02/19 at 13:15; Stop 02/04/19 at 13:14 Fentanyl Citrate (Fentanyl 2ml Vial) 50 mcg PRN Q1HR PRN IV PAIN Last administered on 02/02/19at 16:56; Start 02/02/19 at 15:15; Stop 02/03/19 at 15:14 Sodium Chloride 1,000 ml @ 75 mls/hr [id number] IV Last administered on 02/03/19at 05:16; Start 02/02/19 at 15:11; Stop 02/03/19 at 10:36; Status DC Piperacillin Sod/ Tazobactam Sod (Zosyn Per Pharmacy) 1 each PRN DAILY PRN MC SEE COMMENTS; Start 02/02/19 at 15:15 Piperacillin Sod/ Tazobactam Sod 3.375 gm/Sodium Chloride 50 ml @ 100 mls/hr Q6H IV Last administered on 02/03/19at 05:55; Start 02/02/19 at 16:00 Potassium Chloride/Dextrose/ Sod Cl 1,000 ml @ 100 mls/hr Q10H IV ; Start at 10:30 Insulin Human Lispro (HumaLOG) 0-7 UNITS TIDWMEALS SQ ; Start 02/03/19 at 12:00 Dextrose (Dextrose 50%-Water Syringe) 12.5 gm PRN Q15MIN PRN IV SEE COMMENTS; Start 02/03/19 at 10:30 Active Scripts Active Reported Colcrys (Colchicine) 0.6 Mg Tablet 1 Tab PO DAILY Aspir-Low (Aspirin) 81 Mg Tablet.dr 1 Tab PO DAILY Triamterene-Hctz 37.5-25 Mg Cp (Triamterene/Hydrochlorothiazid) 1 Each Capsule 1 Cap PO DAILY Simvastatin 20 Mg Tablet 1 Tab PO QHS Methimazole 10 Mg Tablet 10 Mg PO DAILY Glipizide Er (Glipizide) 5 Mg Tab.er.24 1 Tab PO DAILY Allergies Allergies: Coded Allergies: Sulfa (Sulfonamide Antibiotics) (Verified Allergy, Intermediate, 02/03/19) ROS General: No: Chills, Other (fevers) PSYCHOLOGICAL ROS: No: Anxiety, Depression Eyes: No Blurry vision, No Double vision HEENT: No: Heacaches, Sore Throat Hematological and Lymphatic: YES: Bleeding Problems, Blood Clots Respiratory: No: Cough, SOB with excertion Cardiovascular: No Chest Pain, No Palpitations Gastrointestinal: Yes Other (see hpi) Genitourinary: No Dysuria, No Hematuria Musculoskeletal: No Joint Pain, No Muscle Pain Neurological: No Impaired Coord/balance, No Numbness/Tingling Skin: No Pruritus, No Rash Physical Exam General: Alert, Oriented X3, Cooperative, No acute distress HEENT: PERRLA, Mucous membr. moist/pink Lungs: Clear to auscultation, Normal air movement Heart: Regular rate, Normal S1, Normal S2, No murmurs Abdomen: Soft, Other (moderate RLQ TTP, some guarding on exam) Extremities: No clubbing, No cyanosis Skin: No rashes, No breakdown Neuro: Normal gait, Normal speech Psych/Mental Status: Mental status NL, Mood NL MUSCULOSKELETAL: No deformity, No swelling Vitals VITALS Vital Signs Date Time Temp Pulse Resp B/P (MAP) Pulse Ox O2 Delivery O2 Flow Rate FiO2 02/03/19 07:00 97.6 62 16 139/73 (95) 100 Room Air 97.6 Labs Labs Laboratory Tests Test 02/02/19 11:15 02/02/19 12:10 Urine Collection Type Unknown Urine Color Yellow Urine Clarity Clear Urine pH 5.5 Urine Specific [place] 1.025 Urine Protein Negative mg/dL (NEG-TRACE) Urine Glucose (UA) Negative mg/dL (NEG) Urine Ketones (Stick) Trace mg/dL (NEG) Urine Blood Negative (NEG) Urine Nitrite Negative (NEG) Urine Bilirubin Small (NEG) Urine Urobilinogen Dipstick 1.0 mg/dL (0.2 mg/dL) Urine Leukocyte Esterase Negative (NEG) Urine RBC 0 /HPF (0-2) Urine WBC Occ /HPF (0-4) Urine Squamous Epithelial Cells Occ /LPF Urine Bacteria Few /HPF (0-FEW) Urine Mucus Slight /LPF White Blood Count 7.1 x10^3/uL (4.0-11.0) Red Blood Count 3.95 x10^6/uL (3.50-5.40) Hemoglobin 11.7 g/dL (12.0-15.5) Hematocrit 35.5 % (36.0-47.0) Mean Corpuscular Volume 90 fL (79-100) Mean Corpuscular Hemoglobin 30 pg (25-35) Mean Corpuscular Hemoglobin Concent 33 g/dL (31-37) Red Cell Distribution Width 20.1 % (11.5-14.5) Platelet Count 82 x10^3/uL (140-400) Neutrophils (%) (Auto) 83 % (31-73) Lymphocytes (%) (Auto) 5 % (24-48) Monocytes (%) (Auto) 12 % (0-9) Eosinophils (%) (Auto) 0 % (0-3) Basophils (%) (Auto) 1 % (0-3) Neutrophils # (Auto) 5.9 x10^3uL (1.8-7.7) Lymphocytes # (Auto) 0.3 x10^3/uL (1.0-4.8) Monocytes # (Auto) 0.8 x10^3/uL (0.0-1.1) Eosinophils # (Auto) 0.0 x10^3/uL (0.0-0.7) Basophils # (Auto) 0.0 x10^3/uL (0.0-0.2) Segmented Neutrophils % 71 % (35-66) Band Neutrophils % 13 % (0-9) Lymphocytes % 5 % (24-48) Monocytes % 11 % (0-10) Platelet Estimate Decreased (ADEQUATE) Anisocytosis Slight Prothrombin Time 17.2 SEC (11.7-14.0) Prothromb Time International Ratio 1.4 (0.8-1.1) Sodium Level 142 mmol/L (136-145) Potassium Level 3.7 mmol/L (3.5-5.1) Chloride Level 104 mmol/L (98-107) Carbon Dioxide Level 30 mmol/L (21-32) Anion Gap 8 (6-14) Blood Urea Nitrogen 22 mg/dL (7-20) Creatinine 1.2 mg/dL (0.6-1.0) Estimated GFR (Cockcroft-Gault) 53.4 BUN/Creatinine Ratio 18 (6-20) Glucose Level 90 mg/dL (70-99) Calcium Level 8.7 mg/dL (8.5-10.1) Total Bilirubin 0.3 mg/dL (0.2-1.0) Aspartate Amino Transf (AST/SGOT) 17 U/L (15-37) Alanine Aminotransferase (ALT/SGPT) 11 U/L (14-59) Alkaline Phosphatase 101 U/L (46-116) Total Protein 6.2 g/dL (6.4-8.2) Albumin 3.1 g/dL (3.4-5.0) Albumin/Globulin Ratio 1.0 (1.0-1.7) Laboratory Tests Test 02/02/19 12:10 White Blood Count 7.1 x10^3/uL (4.0-11.0) Red Blood Count 3.95 x10^6/uL (3.50-5.40) Hemoglobin 11.7 g/dL (12.0-15.5) Hematocrit 35.5 % (36.0-47.0) Mean Corpuscular Volume 90 fL (79-100) Mean Corpuscular Hemoglobin 30 pg (25-35) Mean Corpuscular Hemoglobin Concent 33 g/dL (31-37) Red Cell Distribution Width 20.1 % (11.5-14.5) Platelet Count 82 x10^3/uL (140-400) Neutrophils (%) (Auto) 83 % (31-73) Lymphocytes (%) (Auto) 5 % (24-48) Monocytes (%) (Auto) 12 % (0-9) Eosinophils (%) (Auto) 0 % (0-3) Basophils (%) (Auto) 1 % (0-3) Neutrophils # (Auto) 5.9 x10^3uL (1.8-7.7) Lymphocytes # (Auto) 0.3 x10^3/uL (1.0-4.8) Monocytes # (Auto) 0.8 x10^3/uL (0.0-1.1) Eosinophils # (Auto) 0.0 x10^3/uL (0.0-0.7) Basophils # (Auto) 0.0 x10^3/uL (0.0-0.2) Segmented Neutrophils % 71 % (35-66) Band Neutrophils % 13 % (0-9) Lymphocytes % 5 % (24-48) Monocytes % 11 % (0-10) Platelet Estimate Decreased (ADEQUATE) Anisocytosis Slight Prothrombin Time 17.2 SEC (11.7-14.0) Prothromb Time International Ratio 1.4 (0.8-1.1) Sodium Level 142 mmol/L (136-145) Potassium Level 3.7 mmol/L (3.5-5.1) Chloride Level 104 mmol/L (98-107) Carbon Dioxide Level 30 mmol/L (21-32) Anion Gap 8 (6-14) Blood Urea Nitrogen 22 mg/dL (7-20) Creatinine 1.2 mg/dL (0.6-1.0) Estimated GFR (Cockcroft-Gault) 53.4 BUN/Creatinine Ratio 18 (6-20) Glucose Level 90 mg/dL (70-99) Calcium Level 8.7 mg/dL (8.5-10.1) Total Bilirubin 0.3 mg/dL (0.2-1.0) Aspartate Amino Transf (AST/SGOT) 17 U/L (15-37) Alanine Aminotransferase (ALT/SGPT) 11 U/L (14-59) Alkaline Phosphatase 101 U/L (46-116) Total Protein 6.2 g/dL (6.4-8.2) Albumin 3.1 g/dL (3.4-5.0) Albumin/Globulin Ratio 1.0 (1.0-1.7) Assessment/Plan Assessment/Plan endometrial cancer, recurrence on chemo ct concerning for pelvic abscess, recurrence of disease appendix not identified d/w Dr Guadalupe--he will discuss with Dr Zee, likely need [facility] tx to eval with her--I discussed this with KACI Boone APRN Feb 03, 2019 11:56
[2019-02-03] MEDS ORDERED: INSULIN LISPRO 300 UNITS/3 ML INSULN.PEN. SQ SCH (12:00)
[2019-02-03] MEDS ORDERED: RIVA20TA2 PO (14:45)
--- NOTE | 2019-02-03 16:26 | NUR ---
Per Physician request, YOSHI initiated an inpatient request at [facility]. Referral faxed and pt is accepted at [facility]. Pt will transport via [facility] at 1600. Packet on chart. [place].
--- NOTE | 2019-02-05 15:26 | PDOC ---
Provider Note Provider Note Discharge summary dictated.#[id number]. ALAN IQBAL MD February 05, 2019 15:26
--- NOTE | 2019-02-05 20:48 | DS ---
DATE OF DISCHARGE: 02/03/2019 REASON FOR ADMISSION TO THE HOSPITAL: Abdominal/pelvic pain. The patient has a known history of endometrial cancer with metastasis to the peritoneum. CONSULTATIONS: Dr. Hargrove, General Surgery. PROCEDURES DONE: CT of the abdomen and pelvis. HOSPITAL COURSE: The patient is a 73-year-old female who was diagnosed with endometrial cancer 1-1/2 years ago. She had a hysterectomy followed by chemotherapy and I think 6 months ago she was found to have recurrence of cancer with peritoneal seeding and she is getting chemotherapy for it now. She usually goes to [facility]. At this time, she came to [place] ER with abdominal pain, right lower quadrant. CT scan showed some pelvic fluid or mass 5 cm between the bladder and the rectum and some stranding of the cecum. The patient was seen by General Surgery, did not think it was appendicitis and because of the history of uterine/endometrial cancer with endometrial carcinomatosis, it was decided to transfer the patient to [facility], to be followed by Gynecology and Gynecological Oncology. The patient had a history of hypertension, diabetes and hyperthyroidism, has been stable. FINAL DIAGNOSES: 1. Abdominal/pelvic pain secondary to pelvic mass versus cyst between the bladder and the rectum. The patient has history of uterine cancer stage 4 with endometrial spread with peritoneal carcinomatosis, getting chemotherapy #3. 2. Diabetes. 3. Hypertension. 4. Hypothyroidism. DISPOSITION: [facility] under the care of the patient's OIM ARCHITECT and gynecological oncology. ALAN IQBAL MD DR: DAFNE/lorraine JOB#: [id number] / [id number]
== END 2019-02-03 16:35 | disposition short-term general hospital (02) | DRG 756 ==
LOC: ER 10:59 → 5 NORTH 15:10 → ER 17:32
PROVIDERS: ADMIT Internal Medicine; ATTEND Internal Medicine
DX: C54.1 Malignant neoplasm of endometrium (principal); N73.9 Female pelvic inflammatory disease, unspecified; I10 Essential (primary) hypertension; E78.00 Pure hypercholesterolemia, unspecified; E11.9 Type 2 diabetes mellitus without complications; E03.9 Hypothyroidism, unspecified; M10.9 Gout, unspecified; E78.5 Hyperlipidemia, unspecified; K21.9 Gastro-esophageal reflux disease without esophagitis; E05.90 Thyrotoxicosis, unspecified without thyrotoxic crisis or storm; Z83.3 Family history of diabetes mellitus; Z90.710 Acquired absence of both cervix and uterus; Z85.42 Personal history of malignant neoplasm of other parts of uterus; Z86.718 Personal history of other venous thrombosis and embolism; Z79.01 Long term (current) use of anticoagulants; Z82.49 Family history of ischemic heart disease and other diseases of the circulatory system
CPT/HCPCS: 36415; 71045; 74177; 80053; 81001; 82962; 85007; 85025; 85610; 93005; 96361; 96374; J1815; J2543; J3010; J7030; J7040; 99285-25